=== PATIENT | male | born 1960 | race Caucasian/White ===

== ENCOUNTER → 2018-10-06 | Outpatient (CLI) | payer MEDICARE ==
--- NOTE | 2018-10-06 16:05 | US ---
EXAMINATION TYPE: US carotid duplex BILAT DATE OF EXAM: 10/06/2018 COMPARISON: NONE CLINICAL HISTORY: R09.89 CAROTID BRUIT. EXAM MEASUREMENTS: RIGHT: Peak Systolic Velocity (PSV) cm/sec ----- Right CCA: 56.4 ----- Right ICA: 74.3 ----- Right ECA: 96.2 ICA/CCA ratio: 1.3 RIGHT: End Diastole cm/sec ----- Right CCA: 22.5 ----- Right ICA: 34.7 ----- Right ECA: 19.6 LEFT: Peak Systolic Velocity (PSV) cm/sec ----- Left CCA: 85.1 ----- Left ICA: 99.2 ----- Left ECA: 101.6 ICA/CCA ratio: 1.2 LEFT: End Diastole cm/sec ----- Left CCA: 28.1 ----- Left ICA: 23.6 ----- Left ECA: 17.6 VERTEBRALS (direction of flow): Right Vertebral: Antegrade Left Vertebral: Antegrade Rhythm: Moderate plaque, no elevated velocities. IMPRESSION: Mild degree of grayscale atheromatous plaquing with no sonographically evident hemodynam ically significant stenosis within either visualized carotid arterial system. Criteria for Assigning % of Stenosis / Diameter reduction (Estimation based on the indirect measurements of the internal carotid artery velocities (ICA PSV). 1. Normal (no stenosis)=ICA PSV < 125 cm/s: ratio < 2.0: ICA EDV<40 cm/s. 2. Less than 50% stenosis=ICA PSV < 125 cm/s: ratio < 2.0: ICA EDV<40 cm/s. 3. 50 to 69% stenosis=ICA PSV of 125 to 230 cm/s: ration 2.0 ? 4.0: ICA EDV 40-100 cm/s. 4. Greater than 70% stenosis to near occlusion= ICA PSV > 230 cm/s: ratio > 4.0: ICA EDV > 100 cm/s. 5. Near occlusion= ICA PSV velocities may be low or undetectable: variable ratio and ICA EDV. 6. Total occlusion=unable to detect flow.
== END | disposition home or self-care (01) ==
LOC: RADUSWWP 15:15
PROVIDERS: ATTEND Internal Medicine
DX: I65.23 Occlusion and stenosis of bilateral carotid arteries (principal)
CPT/HCPCS: 93880

== ENCOUNTER → 2019-05-02 | Outpatient (CLI) | payer MEDICARE ==
--- NOTE | 2019-05-02 15:35 | US ---
EXAMINATION TYPE: US scrotum with doppler. Grayscale and color Doppler Duplex imaging performed of t ulises scrotum. DATE OF EXAM: 05/02/2019 COMPARISON: NONE CLINICAL HISTORY: N49.2 Testicular swelling. Edema EXAM MEASUREMENTS: TESTICLES: Right Testicle: 4.8 x 3.4 x 2.5 cm Left Testicle: 3.8 x 3.5 x 3.2 cm EPIDIDYMIS HEAD: Right Epididymis: 1.3 x .6 x 1.0 cm Left Epididymis: 1.2 x .8 x .6 cm Doppler performed to assess for testicular vascularity; good bilateral color flow and waveforms are s een. Presence of hydroceles: Yes bilateral. Presence of varicoceles: No Color images show satisfactory blood flow to both testicles. Suboptimal comparison images towards the end of the study due to left-sided scrotal fluid collection. IMPRESSION: Asymmetric large left scrotal fluid collection or hydrocele.
== END | disposition home or self-care (01) ==
LOC: RADUSMAIN 14:39
PROVIDERS: ATTEND Internal Medicine
DX: N49.2 Inflammatory disorders of scrotum (principal)
CPT/HCPCS: 76870; 93975

== ENCOUNTER → 2020-01-30 | Outpatient (CLI) | payer MEDICARE ==
--- NOTE | 2020-01-30 10:58 | CT ---
EXAMINATION TYPE: CT brain wo con DATE OF EXAM: 01/30/2020 HISTORY: Abnormal weight loss, syncope CT DLP: 978.20 mGycm. Automated Exposure Control for Dose Reduction was Utilized. TECHNIQUE: CT scan of the head is performed without contrast. COMPARISON: None. FINDINGS: There is no acute intracranial hemorrhage or midline shift identified. There is diffuse v entricular and sulcal prominence consistent with diffuse age-related cerebral atrophy. There is low- attenuation in the periventricular white matter consistent with chronic small vessel ischemic change. Some focal cerumen deep in the left external auditory canal is felt present. Mild/moderate calcified plaque distal internal carotid arteries bilaterally. No suspicious opacification mastoid air cells. The globes are intact and the visualized sinuses are clear. IMPRESSION: No acute intracranial hemorrhage or midline shift. There is mild to moderate diffuse ag e-related cerebral atrophy and chronic small vessel ischemic change noted.
--- NOTE | 2020-01-30 13:13 | CT ---
EXAMINATION TYPE: CT chest wo con DATE OF EXAM: 01/30/2020 COMPARISON: None HISTORY: Abnormal weight loss, syncope CT DLP: 486.60 mGycm Automated exposure control for dose reduction was used. CONTRAST: High-resolution CT scan of the chest is performed without intravenous contrast, and prone and supine positioning FINDINGS: LUNGS: Mild centrilobular emphysema of the lung apices. No bronchiectasis, no fibrosis, and no honeyc ombing. Lungs are grossly clear. No concerning parenchymal mass. No pleural effusion. No pneumothorax . The tracheobronchial tree is patent. MEDIASTINUM/SOFT TISSUES: No axillary, hilar, or mediastinal lymphadenopathy greater than 1 cm. Cardi ac size is normal. No pericardial effusion. Calcified coronary artery disease. No thoracic aortic ane urysm. UPPER ABDOMEN: Obscured by surgical spine metallic hardware streak artifact. OSSEOUS: Degenerative changes of the spine. IMPRESSION: Mild centrilobular emphysema. No fibrosis or honeycombing.
== END | disposition home or self-care (01) ==
LOC: RADCTMAIN 07:42
PROVIDERS: ATTEND Internal Medicine
DX: G31.1 Senile degeneration of brain, not elsewhere classified (principal); I67.82 Cerebral ischemia; J43.2 Centrilobular emphysema
CPT/HCPCS: 70450; 71250

== ENCOUNTER 2020-04-30 19:17 | Observation (INO) | payer MEDICARE ==
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
[2020-04-30] MEDS ORDERED: NITROGLYCERIN OINT 1 INCH/GM PACKET TOPICAL STA (19:50)
[2020-04-30 19:57] LABS: Basophils # (A) 0.1 k/uL (0-0.2); Basophils % (A) 1 %; Eosinophils # (A) 0.2 k/uL (0-0.7); Eosinophils % (A) 3 %; HGB 15.4 gm/dL (13.0-17.5); Hypochromasia Slight; Lymphocytes # (A) 2.1 k/uL (1.0-4.8); Lymphocytes % (A) 29 %; MCH 35.6 pg (25.0-35.0); MCHC 34.3 g/dL (31.0-37.0); MCV 103.7 fL (80.0-100.0); Macrocytosis Slight; Mean Platelet Volume 6.5; Monocytes # (A) 0.6 k/uL (0-1.0); Monocytes % (A) 8 %; Neutrophils # (A) 4.1 k/uL (1.3-7.7); Neutrophils % (A) 56 %; Platelet Count 211 k/uL (150-450); RBC 4.34 m/uL (4.30-5.90); RDW 13.2 % (11.5-15.5); WBC 7.3 k/uL (3.8-10.6)
[2020-04-30 20:05] LABS: INR 0.9 (<1.2); Partial Thromboplastin Time 22.3 sec (22.0-30.0); Prothrombin Time 9.8 sec (9.0-12.0)
[2020-04-30 20:07] LABS: ALT 17 U/L (4-49); AST 24 U/L (17-59); African American GFR (CKD) >90 (>60 ml/min/1.73 sqM); Albumin 4.1 g/dL (3.5-5.0); Alkaline Phosphatase 61 U/L (38-126); Anion Gap 11 mmol/L; Blood Urea Nitrogen 13 mg/dL (9-20); Calcium 9.1 mg/dL (8.4-10.2); Carbon Dioxide 22 mmol/L (22-30); Chloride 107 mmol/L (98-107); Glucose 95 mg/dL (74-99); Magnesium 2.1 mg/dL (1.6-2.3); Non-African American GFR(CKD) >90 (>60 ml/min/1.73 sqM); Potassium 4.6 mmol/L (3.5-5.1); Sodium 140 mmol/L (137-145); Total Bilirubin 0.3 mg/dL (0.2-1.3)
--- NOTE | 2020-04-30 20:18 | XR ---
EXAMINATION TYPE: XR chest 2V DATE OF EXAM: 04/30/2020 COMPARISON: 05/20/2015 HISTORY: Chest pain TECHNIQUE: FINDINGS: Heart and mediastinum are normal. Lungs are clear of infiltrate. There is no heart failure. There are no hilar masses. Bony thorax is intact. There are chest leads. IMPRESSION: No active cardiopulmonary disease. Normal heart. No change.
[2020-04-30] MEDS ORDERED: HEPARIN SODIUM,PORCINE 5,000 UNIT/ML 1 ML VIAL IV ONE (20:26)
[2020-04-30] MEDS ORDERED: NITROGLYCERIN SL TABS 0.4 MG TAB SUBLINGUAL PRN (20:28)
[2020-04-30] MEDS ORDERED: HEPARIN SOD,PORK IN 0.45% NACL 25,000 UNIT in 0.45% NACL 1 250ML.BAG IV SCH (20:30)
[2020-04-30] MEDS ORDERED: TEMAZEPAM 15 MG CAP PO PRN (23:32)
[2020-05-01] MEDS: NITROGLYCERIN OINT 1 INCH/GM PACKET TOPICAL SCH ×2 (01:19→05:33)
[2020-05-01] MEDS ORDERED: HEPARIN SODIUM,PORCINE 5,000 UNIT/ML 1 ML VIAL IV STA (05:46)
[2020-05-01 08:15] VITALS: BP 152/79; RESP 20; TEMP 97.9
[2020-05-01] MEDS ORDERED: ESCITALOPRAM 10 MG TAB PO SCH (09:00)
[2020-05-01] MEDS ORDERED: ASPIRIN 325 MG TAB PO SCH (09:00)
[2020-05-01] MEDS ORDERED: BISOPROLOL-HCTZ 2.5-6.25 MG 1 EACH TAB PO SCH (09:00)
[2020-05-01] MEDS ORDERED: DOBUTamine DRIP for NUC MED 500 MG in DEXTROSE/WATER 1 250ML.BAG IV PRN (10:00)
[2020-05-01 10:03] LABS: Chol/HDL Ratio 4.08; LDL Cholesterol,Calculated 112.4 mg/dL (0.0-131.0); VLDL Calculation 50.6 mg/dL (5.00-40.00)
[2020-05-01] MEDS ORDERED: IPRATROPIUM-ALBUTEROL 3 ML NEB INHALATION PRN (10:56)
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
--- NOTE | 2020-05-01 11:13 | P.DS ---
Providers Date of admission: 04/30/20 20:35 Attending physician: Stephanie Sandoval Consults: 04/30/20 20:28 Consult Physician Urgent Consulting Provider: [facility] Consult Reason/Comments: Unstable angina Do you want consulting provider notified?: Yes 05/01/20 08:43 Consult Physician Routine Consulting Provider: Oswaldo Alcantara Reason/Comments: SOB Do you want consulting provider notified?: Yes Primary care physician: Guillermina Ledesma [facility] Course: As mentioned in HPI Plan - Discharge Summary Discharge Rx Participant: No New Discharge Prescriptions: New Famotidine [Pepcid] 20 mg PO BID #30 tablet predniSONE 10 mg PO DAILY #30 tab Tiotropium [place] [Spiriva] 1 cap INHALATION DAILY #1 device Budesonide-Formot 160-4.5 Mcg [Symbicort 160-4.5 Mcg Inhaler] 2 puff INHALATION BID #1 inhaler Albuterol Inhaler [Ventolin Hfa Inhaler] 2 puff INHALATION RT-QID PRN #1 inhaler PRN Reason: Shortness Of Breath Or Wheezing Continue Naproxen Sodium [Aleve] 220 mg PO Q12HR PRN PRN Reason: Pain Escitalopram [Lexapro] 10 mg PO DAILY Bisoprolol-Hctz 2.5-6.25 mg [Ziac 2.5-6.25 MG] 1 tab PO DAILY Temazepam [Restoril] 15 mg PO HS PRN PRN Reason: Insomnia Discharge Medication List Naproxen Sodium [Aleve] 220 mg PO Q12HR PRN 05/21/15 [History] Bisoprolol-Hctz 2.5-6.25 mg [Ziac 2.5-6.25 MG] 1 tab PO DAILY 04/30/20 [History] Escitalopram [Lexapro] 10 mg PO DAILY 04/30/20 [History] Temazepam [Restoril] 15 mg PO HS PRN 04/30/20 [History] Albuterol Inhaler [Ventolin Hfa Inhaler] 2 puff INHALATION RT-QID PRN #1 inhaler 05/01/20 [Rx] Budesonide-Formot 160-4.5 Mcg [Symbicort 160-4.5 Mcg Inhaler] 2 puff INHALATION BID #1 inhaler 05/01/20 [Rx] Famotidine [Pepcid] 20 mg PO BID #30 tablet 05/01/20 [Rx] Tiotropium [place] [Spiriva] 1 cap INHALATION DAILY #1 device 05/01/20 [Rx] predniSONE 10 mg PO DAILY #30 tab 05/01/20 [Rx] Follow up Appointment(s)/Referral(s): Shin Sarmiento MD [Primary Care Provider] - 3 Days
--- NOTE | 2020-05-01 11:45 | ECHOF ---
Referral Reason:LV function, SOB MEASUREMENTS -------- HEIGHT: 172.7 cm WEIGHT: 72.6 kg BP: 152/79 RVIDd: 3.8 cm (< 3.3) IVSd: 1.3 cm (0.6 - 1.1) LVIDd: 3.5 cm (3.9 - 5.3) LVPWd: 1.2 cm (0.6 - 1.1) IVSs: 1.6 cm LVIDs: 2.5 cm LVPWs: 1.5 cm Ao Diam: 2.9 cm (2.0 - 3.7) AV Cusp: 1.4 cm (1.5 - 2.6) LA Diam: 3.5 cm (2.7 - 3.8) MV E Last: 0.68 m/s MV DecT: 241 ms MV A Last: 0.51 m/s MV E/A Ratio: 1.34 FINDINGS -------- Sinus rhythm. This was a technically difficult study with suboptimal views. The left ventricular size is normal. There is mild concentric left ventricular hypertrophy. Overa ll left ventricular systolic function is normal with, an EF between 55 - 60 %. The right ventricle is mild to moderately enlarged. The left atrial size is normal. The right atrium was not well visualized. 5.0mg of Lumason was utilized for enhancement of images Interatrial and interventricular septum intact. The aortic valve was not well visualized. There is no evidence of aortic regurgitation. There is no evidence of aortic stenosis. No mitral regurgitation. The tricuspid valve was not well visualized. The pulmonic valve was not well visualized. The aortic root size is normal. IVC Not well visulized. There is no pericardial effusion. CONCLUSIONS -------- 1. The left ventricular size is normal. 2. There is mild concentric left ventricular hypertrophy. 3. Overall left ventricular systolic function is normal with, an EF between 55 - 60 %. 4. The right ventricle is mild to moderately enlarged and function appears impaired. SEO SPECIALIST: Cristiane Sin, [facility]
[2020-05-01] MEDS ORDERED: IPRATROPIUM-ALBUTEROL 3 ML NEB INHALATION SCH (12:00)
[2020-05-01 12:30] VITALS: PULSE 85
--- NOTE | 2020-05-01 12:56 | ECHOS ---
Stress Test Results/Findings: Exam Performed: dobutamine stress echo with con Exam Date: 05/01/20 Reason for Exam: SHORT OF BREATH Height: 5 ft 8 in Weight: 72.57 kg Protocol: DOBUTAMINE STRESS ECHO Stage: IV Duration of Exercise: 12:22 Resting Heart Rate: 49 Resting Blood Pressure: 145/77 Maximum Achieved Heart Rate: 138 Maximum Achieved Blood Pressure: 207/119 85% PMHR: 136 100% PMHR: 160 METS: N/A Technologist Comment: Stress Test Results/Findings: This is a 59-year-old gentleman with history of hypertension smoking was admitted to the hospital mainly she shortness of breath and some chest tightness. His cardiac enzymes are negative. EKG did not reveal any acute changes. D-dimer is normal. Stress data: Baseline EKG showed sinus rhythm and sinus bradycardia with heart rate of about 47. His blood pressure is 145/77 at rest. History and also dobutamine was initiated at 10 mics and was titrated to 40 mics. Patient achieved a maximum heart rate of 138 with blood pressure of about 1 70/74. Patient did not express any chest pain. EKGs showed mild upsloping ST depression could be related to hypertensive response to exercise. Echo data: The study is done with contrast. Baseline echo showed normal wall motion and thickening. Exercise echo images at low dose and high dose dobutamine showed progressive augmentation of wall motion and thickening. Final impression: #1. Negative dobutamine stress test #2. Negative dobutamine stress echo. [facility]
[2020-05-01] MEDS ORDERED: BUDESONIDE 0.5 MG/2 ML NEBU INHALATION SCH (20:00)
== END 2020-05-01 14:00 | disposition home or self-care (01) ==
LOC: EC 19:17 → 6NMEDSUR 20:35
PROVIDERS: ADMIT Hospitalist; ATTEND Hospitalist
DX: J44.1 Chronic obstructive pulmonary disease with (acute) exacerbation (principal); R07.89 Other chest pain; I10 Essential (primary) hypertension; F32.9 Major depressive disorder, single episode, unspecified; G47.00 Insomnia, unspecified; M06.9 Rheumatoid arthritis, unspecified; M48.00 Spinal stenosis, site unspecified; R00.1 Bradycardia, unspecified; F17.210 Nicotine dependence, cigarettes, uncomplicated; M21.371 Foot drop, right foot; R63.4 Abnormal weight loss; Z79.1 Long term (current) use of non-steroidal anti-inflammatories (NSAID); Z79.899 Other long term (current) drug therapy; Z79.51 Long term (current) use of inhaled steroids; Z87.828 Personal history of other (healed) physical injury and trauma; Z86.19 Personal history of other infectious and parasitic diseases; Z80.9 Family history of malignant neoplasm, unspecified; Z20.822 Contact with and (suspected) exposure to COVID-19
CPT/HCPCS: 96376 ×2; 96366 ×2; 93005 ×2; 96365; 99291; 36415; 94640; 85379; 80061; 80053; 83735; 84484 ×2; 85025; 85610; 85730 ×2; 87635; 71046; G0378 ×2; C8929; C8930; J1250; J1644 ×3; Q9950; 93306; 93351

== ENCOUNTER → 2020-05-17 | Outpatient (CLI) | payer MEDICARE ==
--- NOTE | 2020-05-18 05:34 | MR ---
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 On the T2 and FLAIR images there are multiple foci of abnormal increased signal in the periventricula r white matter. Total number is approximately 20 and these measure up to 10 mm. The diffusion images show no evidence of a cortical infarct. The ventricles have normal size. There is mild cerebral atrop hy. Brainstem is intact. Cerebellum is intact. Corpus callosum is intact. Sella turcica appears normal. T here is no evidence of orbital mass. There is some mucosal thickening in the anterior ethmoid air marbella ls. The contrast images show no pathologic enhancement. There is normal enhancement of the venous sinuses . IMPRESSION: White matter signal changes in both cerebral hemispheres could relate to multiple lacunar infarcts or demyelinating disease. No evidence of cortical infarct.
--- NOTE | 2020-05-18 12:50 | MR ---
EXAMINATION TYPE: MR angio head wo con DATE OF EXAM: 05/17/2020 COMPARISON: CT brain January 30, 2020 HISTORY: Cerebral infarction, family history of stroke, amnesia, neoplasm, personality change TECHNIQUE: Time of flight images focusing on the [place] were performed without contrast.. 2-D and 3-D postprocessing imaging is performed on independent workstation and reviewed. FINDINGS: There is dominant or larger caliber right vertebral artery. Vertebral arteries are patent t o basilar junction. There is no significant focal stenosis or aneurysmal change in the posterior circ ulation. There are patent bilateral posterior communicating arteries identified. 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 There is no significant focal s tenosis or aneurysmal change in the anterior circulation IMPRESSION: No aneurysm at the level of the [place].
== END | disposition home or self-care (01) ==
LOC: RADMRIMAIN 10:39
PROVIDERS: ATTEND Psychiatry & Neurology Neurology
DX: R90.82 White matter disease, unspecified (principal); Z82.3 Family history of stroke
CPT/HCPCS: 70544; 70553; A9585